=== PATIENT | female | born 1960 | race Caucasian/White ===

== ENCOUNTER 2017-08-06 07:04 | Day surgery (SDC) | payer MEDICARE ==
[~2017-08-06] VITALS: Ht 170.2 cm; Wt 168.0 kg
[~2017-08-06 07:04] MED LIST: ACYC800 PO; ALBIPROI INH; ALBU90OI INH; ALBU90OI6 INH; ALBU90OI61 INH; ALBUTEROL; ASPI81CH; ATOR10 PO; AZIT250 PO; AZIT500 PO; CALCA500CH PO; COMBIVENT; COMBIVENT RESPIM4 GM INH; CRUTCH3 USE; Cardizem PO; DILT120 PO; Diltiazem ER120 M2 PO; ENABLEX; EPIN.3I; ERGO400 PO; FLOVENT; FLUSAL2505; FLUSAL2505 IH; FLUSAL5005 INH; FLUT.05NI; FLUT1DIS8 INH; FLUT220OIA; HYDACE5 PO; HYDR1TAB94 PO; ISOMON20 PO; LOSA50 PO; METO50; MULTI-DAY PLUS1 EAC1 PO; NAPR550 PO; NITR.6SL SL; NORVASC PO; OXYACE5T PO; PRED10 PO; PRED20 PO; PROC1L PO; Percocet 5-3251 EACH PO; RXNAPNA550 PO; SINUS RINSE PR1 EACH; SPIRIVA; TIOT18; TOBR.3OPSO OP; TRAM50 PO; Vitamin B Comple1 EA PO; ZAFI20 PO; [UNRECOGNIZED DRUG - REMARK]
[2017-08-06] MEDS ORDERED: TRAM50 PO (15:59)
[2017-08-07 04:15] LABS: BASOPHILS ABSOLUTE AUTO 0.01 K/mm3 (0.00-0.23); BASOPHILS PERCENT AUTO 0 % (0-2); EOSINOPHILS ABSOLUTE AUTO 0.02 K/mm3 (0.00-0.68); EOSINOPHILS PERCENT AUTO 0 % (0-6); Hematocrit 38.9 % (33.0-51.0); IMMATURE GRAN ABSOLUTE AUTO 0.01 K/mm3 (0.00-0.10); IMMATURE GRAN PERCENT AUTO 0 % (0-1); LYMPHOCYTES ABSOLUTE AUTO 0.98 K/mm3 (0.84-5.20); LYMPHOCYTES PERCENT AUTO 13 % (21-46); MONOCYTES ABSOLUTE AUTO 0.48 K/mm3 (0.16-1.47); MONOCYTES PERCENT AUTO 6 % (4-13); Mean Corpuscular HGB 27.9 pg (26.0-34.0); Mean Corpuscular HGB Conc 30.8 g/dL (31.5-36.5); Mean Corpuscular Volume 91 fL (80-100); Mean Platelet Volume 9.8 fL (9.1-12.4); NEUTROPHILS ABSOLUTE AUTO 5.97 K/mm3 (1.96-9.15); NEUTROPHILS PERCENT AUTO 80 % (41-73); Platelet Count 277 K/mm3 (150-400); RDW Coefficient Variation 13.3 % (11.7-14.2); RDW Standard Deviation 44.1 fL (35.1-46.3); White Blood Cell Count 7.47 K/mm3 (4.00-11.30)
[2017-08-07 04:37] LABS: Anion Gap 7 mmol/L (6-16); Blood Urea Nitrogen 14 mg/dL (8-24); Bun/Creatinine Ratio 15.8 (12.0-20.0); CO2, Blood 28 mmol/L (21-32); Calcium, Blood 8.8 mg/dL (8.5-10.1); Chloride, Blood 107 mmol/L (98-108); Creatinine, Blood 0.89 mg/dL (0.40-1.00); Glomerular Filtration Rate >60 (60-); Glucose, Blood 135 mg/dL (70-99); Potassium, Blood 4.5 mmol/L (3.5-5.5); Sodium, Blood 142 mmol/L (136-145)
[2017-08-07] MEDS ORDERED: Percocet 7.5-31 EACH PO (08:54)
[2017-08-07] MEDS ORDERED: GAVILAX17 GM PO (08:55)
[2018-04-16] MEDS ORDERED: Vitamin B Comple1 EA (15:04)
[2018-04-16] MEDS ORDERED: ENOX40I SC (15:04)
[2018-04-22] MEDS ORDERED: DOCU100 PO (13:28)
[2018-04-22] MEDS ORDERED: ONDA4ODT MM (13:29)
[2018-04-22] MEDS ORDERED: HYDR1TAB94 PO (13:29)
[2018-04-22] MEDS ORDERED: ACET325 PO (13:29)
== END 2017-08-07 14:37 | disposition home or self-care (01) ==
LOC: ORSCMMR 07:04 → ORD 08:30 → SURS 12:47 → ORSCMMR 08-07 14:37
PROVIDERS: Hospitalist; Podiatrist Foot & Ankle Surgery
PROC: 3E0234Z Introduction of Serum, Toxoid and Vaccine into Muscle, Percutaneous Approach (ICD-10-PCS; 2017-08-06)
PROC: 0LQP0ZZ Repair Left Lower Leg Tendon, Open Approach (ICD-10-PCS; principal; 2017-08-06 08:30)
PROC: 0QBM0ZZ Excision of Left Tarsal, Open Approach (ICD-10-PCS; principal; 2017-08-06 08:30)
DX: M77.32 Calcaneal spur, left foot (principal); I10 Essential (primary) hypertension; E66.01 Morbid (severe) obesity due to excess calories; Z68.43 Body mass index [BMI] 50.0-59.9, adult; J45.909 Unspecified asthma, uncomplicated; Z79.899 Other long term (current) drug therapy; Z23 Encounter for immunization
CPT/HCPCS: 36415; 80048; 85025; 93005; 93010; 94640; 94760; 97116; 97161; 97530; C1713; G0008; G8978; G8979; G8980; J0690; J1100; J1885; J2250; J2405; J2550; J2710; J3010; J7120; Q2038

== ENCOUNTER 2018-02-11 09:46 | Day surgery (SDC) | payer MEDICARE ==
[~2018-02-11] VITALS: Ht 170.2 cm; Wt 134.9 kg
[~2018-02-11 09:46] MED LIST changes: +GAVILAX17 GM PO; +Percocet 7.5-31 EACH PO
== END 2018-02-11 11:40 | disposition home or self-care (01) ==
LOC: ORSCSDS 09:46
PROVIDERS: Internal Medicine Gastroenterology
PROC: 0DB68ZX Excision of Stomach, Via Natural or Artificial Opening Endoscopic, Diagnostic (ICD-10-PCS; principal; 2018-02-11 11:15)
DX: K31.7 Polyp of stomach and duodenum (principal); Z98.84 Bariatric surgery status; J45.909 Unspecified asthma, uncomplicated; I10 Essential (primary) hypertension; D64.9 Anemia, unspecified; E66.01 Morbid (severe) obesity due to excess calories; Z68.42 Body mass index [BMI] 45.0-49.9, adult; Z79.899 Other long term (current) drug therapy
CPT/HCPCS: J2250

== ENCOUNTER 2019-04-15 09:03 | Day surgery (SDC) | payer MEDICARE ==
[~2019-04-15] VITALS: Ht 170.2 cm; Wt 102.9 kg
[~2019-04-15 09:03] MED LIST changes: +ACET325 PO; +CALCIUM CIT 311 EACH PO; +DOCU100 PO; +ENOX40I SC; +ERGO50000 PO; +FERSU300 PO; +Hard Nails2500 MCG PO; +ONDA4ODT MM; +Vitamin B Comple1 EA
--- NOTE | 2019-04-15 10:17 | NUR ---
Ambulatory in Day Surgery Surgical site prepped with 2% Chlorhexidine cloth wipe. History, Chart, Medications and Allergies reviewed before start of procedure.Lungs clear T/O to Auscultation. Patient confirms NPO status and agrees with scheduled surgery. Patient reports completing Chlorhexadine shower X2 prior to admission to hospital.
--- NOTE | 2019-04-15 12:21 | NUR ---
04/15/19 1221 Valorie Vargas ALL COUNTS CORRECT.
--- NOTE | 2019-04-15 16:35 | NUR ---
THERAPY: PT IN ROOM TO WORK WITH PATIENT. MEDICATED FOR PAIN PRN.
--- NOTE | 2019-04-15 18:22 | NUR ---
PT HAS BEEN STABLE POST OP. PT SLEEPY BUT ROUSES EASILY. PT WAS ABLE TO WORK WITH THERAPY TO AMBULATE IN HALLWAYS AND SIT IN CHAIR. PT HAS NOT HAD A VOID YET POST OP. CONT IV FLUIDS ORDERED. PT TOLERATING WATER AND JELLO BUT HAS NOT HAD MUCH OF AN APPETITE. NO NAUSEA. AQUACEL CDI. HEMOVAC WITH MINOUTPUT VISIBLE IN DRAIN, NOT EMPTIED. PAS, TEDS AND POLAR PACK IN PLACE. PAIN MANAGED WITH SCHEDULED AND PRN MEDS. CALL LIGHT USED APPROPRIATELY.
[2019-04-16 04:11] LABS: BASOPHILS ABSOLUTE AUTO 0.01 K/mm3 (0.00-0.23); BASOPHILS PERCENT AUTO 0 % (0-2); EOSINOPHILS PERCENT AUTO 0 % (0-6); Hematocrit 31.1 % (33.0-51.0); Hemoglobin 9.9 g/dL (11.5-16.0); IMMATURE GRAN ABSOLUTE AUTO 0.03 K/mm3 (0.00-0.10); IMMATURE GRAN PERCENT AUTO 0 % (0-1); LYMPHOCYTES ABSOLUTE AUTO 0.83 K/mm3 (0.84-5.20); LYMPHOCYTES PERCENT AUTO 9 % (21-46); MONOCYTES ABSOLUTE AUTO 0.59 K/mm3 (0.16-1.47); MONOCYTES PERCENT AUTO 7 % (4-13); Mean Corpuscular HGB 29.3 pg (26.0-34.0); Mean Corpuscular HGB Conc 31.8 g/dL (31.5-36.5); Mean Corpuscular Volume 92 fL (80-100); Mean Platelet Volume 10.6 fL (9.1-12.4); NEUTROPHILS ABSOLUTE AUTO 7.64 K/mm3 (1.96-9.15); NEUTROPHILS PERCENT AUTO 84 % (41-73); Platelet Count 206 K/mm3 (150-400); RDW Coefficient Variation 13.2 % (11.7-14.2); RDW Standard Deviation 44.1 fL (35.1-46.3); Red Blood Cell Count 3.38 M/mm3 (3.80-5.20)
[2019-04-16 04:29] LABS: Anion Gap 6 mmol/L (6-16); Blood Urea Nitrogen 17 mg/dL (8-24); Bun/Creatinine Ratio 22.3 (12.0-20.0); CO2, Blood 28 mmol/L (21-32); Calcium, Blood 8.6 mg/dL (8.5-10.1); Chloride, Blood 108 mmol/L (98-108); Creatinine, Blood 0.76 mg/dL (0.40-1.00); Glomerular Filtration Rate >60 (60-); Glucose, Blood 145 mg/dL (70-99); Potassium, Blood 4.1 mmol/L (3.5-5.5); Sodium, Blood 142 mmol/L (136-145)
--- NOTE | 2019-04-16 05:04 | NUR ---
SHIFT SUMMARY LYING IN SEMI FOWLERS WITH EYES CLOSED. GOOD PAIN MANAGEMENT MAINTAINED. AMBULATED ALL AROUND UNIT, TOLERATED WELL. TOLERATED DIET WELL. DENIES FURTHER NEEDS AT THIS TIME. SAFETY MEASURES IN PLACE. WILL GIVE HAND OFF TO ONCOMING SHIFT USING SBAR.
--- NOTE | 2019-04-16 13:00 | NUR ---
PATIENT HAD 1 EMESIS. 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 IT WILL PASS.' IV INFILTRATED WHEN FLUSHED, DECLINES NEW START AT THIS TIME.
--- NOTE | 2019-04-16 17:08 | NUR ---
1700 assumed of patient patient sitting in chair at bedside and is crocheting. patient reports pain is 2/10. call light in reach patient has no needs at this time
--- NOTE | 2019-04-16 17:53 | NUR ---
SUMMARY PATIENT REPORTS GOOD PAIN CONTROL AND PLANNING FOR DISCHARGE IN THE MORNING AFTER DRAIN REMOVED. PATIENT STANDBY ASSIST TO AMBULATE IN HALLWAYS
--- NOTE | 2019-04-17 05:36 | NUR ---
SHIFT SUMMARY: PT POD#1 FOR RIGHT TOTAL KNEE. AQUACEL DRESSING CDI. POLAR PACK IN PLACE. TOTAL OF 80CC OF SS DRG FROM HEMOVAC. PT AMBULATING WITH MINIMAL 1 ASSIST TO BATHROOM. PAIN MANAGED WITH TYLENOL AND 10MG OXY. TRE REG DIET. DENIES N/V. VOIDING WELL.
--- NOTE | 2019-04-17 12:28 | NUR ---
DR Melton. BEEN TO SEE PT EARLIER TODAY. HEMOVAC WAS EMPTIED AT THAT TIME.
--- NOTE | 2019-04-17 13:38 | NUR ---
OTHER CHEMA Peters. BEEN GIVEN REPORT AND IS ASSUMING CARE OF PT AT THIS TIME.
--- NOTE | 2019-04-17 14:15 | NUR ---
ASSUMED CARE OF PATIENT AT THIS TIME. PT UP TO CHAIR. DOCOTR IN TO CHECK ON PT HEMOVAC DRAINAGE. 30CC SANGUINOUS DRAINAGE EMPTIED. DRAIN DC'D PER DOCTOR. PLAN TO DC HOME THIS AFTERNOON.
[2019-04-17] MEDS ORDERED: CELE100 PO (15:36)
[2019-04-17] MEDS ORDERED: Percocet 5-3251 EACH PO (15:37)
[2019-04-17] MEDS ORDERED: Aspir 8181 MG PO (15:37)
--- NOTE | 2019-04-17 16:00 | NUR ---
DISCHARGE: PT DC TO HOME AT THIS TIME WITH FAMILY. VERBALIZED UNDERSTANDING OF INSTRUCTIONS, FOLLOW UP, PROBLEMS TO REPORT AND MEDICATONS. SCRIPTS GIVEN. PT HAS NO IV. LEFT VIA WHEELCHAIR TO CAR WITH BELONGINGS. DRESSING SUPPLIES GIVEN.
== END 2019-04-17 16:01 | disposition home or self-care (01) ==
LOC: ORSCMMR 09:03 → ORD 09:45 → ORSCMMR 09:45 → SURS 14:13 → ORSCMMR 04-17 16:01
PROVIDERS: Orthopaedic Surgery
PROC: 0SRC0J9 Replacement of Right Knee Joint with Synthetic Substitute, Cemented, Open Approach (ICD-10-PCS; principal; 2019-04-15 10:30)
DX: M17.11 Unilateral primary osteoarthritis, right knee (principal); J45.909 Unspecified asthma, uncomplicated; I10 Essential (primary) hypertension; G47.33 Obstructive sleep apnea (adult) (pediatric); E66.9 Obesity, unspecified; Z68.35 Body mass index [BMI] 35.0-35.9, adult; Z23 Encounter for immunization; Z79.899 Other long term (current) drug therapy
CPT/HCPCS: 36415; 73560-RT; 80048; 85025; 88300; 88304; 90686; 94640; 94760; 97110; 97116; 97162; 97530; C1713; C1776; G0008; J0171; J0690; J0735; J1100; J1885; J2250; J2405; J2704; J2765; J2795; J3010; J7120

== ENCOUNTER 2019-07-13 05:58 | Day surgery (SDC) | payer OTHER ==
[~2019-07-13] VITALS: Ht 170.2 cm; Wt 99.5 kg
[~2019-07-13 05:58] MED LIST changes: +Aspir 8181 MG PO; +CELE100 PO; -Vitamin B Comple1 EA
--- NOTE | 2019-07-13 06:37 | NUR ---
INTO SDS VIA WHEELCHAIR. ABLE TO STAND FOR A WEIGHT AND AMBULATE TO THE BATHROOM. PT DENIES PAIN AT THIS TIME. History, Chart, Medications and Allergies reviewed before start of procedure.Lungs clear T/O to Auscultation. Patient confirms NPO status and agrees with scheduled surgery. Patient reports completing Chlorhexadine shower X2 prior to admission to hospital.Surgical site prepped with 2% Chlorhexidine cloth wipe.
--- NOTE | 2019-07-13 10:50 | NUR ---
PT TRANSFERRED TO ROOM VIA OWN BED, SLEEPY YET AROUSABLE TO VERBAL STIMULI, POST OP VS COMMENCED AND STABLE, PAS/CRYO/TEDS IN PLACE. FAMILY IN ROOM
--- NOTE | 2019-07-13 13:11 | NUR ---
07/13/19 1311 Arben Mena LATE ENTRY: INITIAL PROCEDURE WAS THE RIGHT KNEE LIPOMA EXCISION. 0831- SITE CHECK PREFORMED AND INCISION MADE FOR LEFT TKA.
--- NOTE | 2019-07-13 13:48 | NUR ---
physical therapy working with pt
[2019-07-14 04:50] LABS: BASOPHILS ABSOLUTE AUTO 0.01 K/mm3 (0.00-0.23); BASOPHILS PERCENT AUTO 0 % (0-2); EOSINOPHILS ABSOLUTE AUTO 0.02 K/mm3 (0.00-0.68); EOSINOPHILS PERCENT AUTO 0 % (0-6); Hematocrit 29.8 % (33.0-51.0); Hemoglobin 9.4 g/dL (11.5-16.0); IMMATURE GRAN ABSOLUTE AUTO 0.04 K/mm3 (0.00-0.10); IMMATURE GRAN PERCENT AUTO 0 % (0-1); LYMPHOCYTES ABSOLUTE AUTO 1.28 K/mm3 (0.84-5.20); LYMPHOCYTES PERCENT AUTO 14 % (21-46); MONOCYTES PERCENT AUTO 8 % (4-13); Mean Corpuscular HGB 28.3 pg (26.0-34.0); Mean Corpuscular HGB Conc 31.5 g/dL (31.5-36.5); Mean Corpuscular Volume 90 fL (80-100); Mean Platelet Volume 10.5 fL (9.1-12.4); NEUTROPHILS ABSOLUTE AUTO 7.14 K/mm3 (1.96-9.15); NEUTROPHILS PERCENT AUTO 78 % (41-73); Platelet Count 200 K/mm3 (150-400); RDW Coefficient Variation 12.8 % (11.7-14.2); RDW Standard Deviation 41.9 fL (35.1-46.3); Red Blood Cell Count 3.32 M/mm3 (3.80-5.20); White Blood Cell Count 9.19 K/mm3 (4.00-11.30)
--- NOTE | 2019-07-14 05:00 | NUR ---
SHIFT SUMMARY LYING IN SEMI FOWLERS WITH EYES OPEN. HAS BEEN OUT OF BED AMBULATING SEVERAL TIMES THIS SHIFT, HAS HAD PRN PAIN MED X1 THIS SHIFT, DENEIS FURTHER NEEDS OR WANTS AT THIS TIME. SAFETY MEASURES IN PLACE. WILL GIVE HAND OFF TO ONCOMING SHIFT USING SBAR.
[2019-07-14 05:09] LABS: Anion Gap 5 mmol/L (6-16); Blood Urea Nitrogen 22 mg/dL (8-24); Bun/Creatinine Ratio 29.4 (12.0-20.0); CO2, Blood 27 mmol/L (21-32); Calcium, Blood 8.4 mg/dL (8.5-10.1); Chloride, Blood 112 mmol/L (98-108); Creatinine, Blood 0.75 mg/dL (0.40-1.00); Glomerular Filtration Rate >60 (60-); Glucose, Blood 138 mg/dL (70-99); Sodium, Blood 144 mmol/L (136-145)
--- NOTE | 2019-07-14 18:20 | NUR ---
SUMMARY OOB TO CHAIR MUCH OF SHIFT, STANDBY ASSIST TO AMBULATE AND STEADY ON FEET. R LEG DRESSINGS X2 DRY AND INTACT. LEFT KNEE DRESSING DRY AND INTACT. HEMOVAC WITH BLOODY DRAINAGE. PT REPORTS GOOD PAIN CONTROL WITH PO MEDS
--- NOTE | 2019-07-15 05:20 | NUR ---
PT UP IN THE HALLWAYS WALKING TWICE TONIGHT, tHE LAST TIME SHE HAD INCREASED PAIN IN HER LT KNEE. MEDICATED PER EMAR. JACKELYN HOSE REMOVED AT THE BEGINNING OF THE SHIFT, THE TOP CUFF WAS VERY TIGHT, SCD'S REMOVED @ LAST ROUNDING PER PT REQUEST. HEMOVAC DRAINED OF 50CC OF RED FLUID. DRESSINGS ON RT AND LT KNEE ARE CLEAN AND DRY. NO OTHER ACUTE CHANGES.
[2019-07-15] MEDS ORDERED: ACET500 PO (08:27)
[2019-07-15] MEDS ORDERED: XARELTO20 MG PO (10:49)
[2019-07-15] MEDS ORDERED: Percocet 5-3251 EACH PO (10:50)
--- NOTE | 2019-07-15 12:30 | NUR ---
PATIENT D/C'D HOME AT THIS TIME. PATIENT HAD R KNEE DONE SOME MONTHS AGO; CONFIDENT IN UNDERSTANDING OF MEDS, ACTIVITY, WOUND CARE, OP PT, F/U APPT, ETC. PATIENT STATES PAIN CONTROLLED WITH PO PAIN MEDS. TOLERATING DIET. VOIDING. NO ACUTE CHANGES OR C/O. SCANT DRAINAGE NOTED FROM HEMOVAC SITE (D/C'D THIS AM BY ) DRESSINGS SENT WITH PATIENT.
== END 2019-07-15 12:30 | disposition home or self-care (01) ==
LOC: ORSCMMR 05:58 → ORD 07:30 → SURS 10:43 → ORSCMMR 07-15 12:30
PROVIDERS: Orthopaedic Surgery
PROC: 0SRD0J9 Replacement of Left Knee Joint with Synthetic Substitute, Cemented, Open Approach (ICD-10-PCS; principal; 2019-07-13 07:30)
DX: M17.12 Unilateral primary osteoarthritis, left knee (principal); Z01.818 Encounter for other preprocedural examination; I10 Essential (primary) hypertension; J45.909 Unspecified asthma, uncomplicated; K21.9 Gastro-esophageal reflux disease without esophagitis; Z79.899 Other long term (current) drug therapy; E66.9 Obesity, unspecified; Z68.34 Body mass index [BMI] 34.0-34.9, adult
CPT/HCPCS: 36415; 73560-LT; 80048; 85025; 86850; 86900; 86901; 88300; 88305; 94640; 94760; 97110; 97116; 97162; C1776; J0171; J0690; J0735; J1100; J1885; J2250; J2405; J2550; J2704; J2765; J2795; J3010; J7120

== ENCOUNTER 2020-07-28 08:21 | Day surgery (SDC) | payer OTHER ==
[~2020-07-28] VITALS: Ht 170.2 cm; Wt 114.1 kg
[~2020-07-28 08:21] MED LIST changes: +ACET500 PO; +FEROSUL325 M1; +FERROUS SULFAT325 M3 PO; +FLUT1DIS5 INH; +FLUT1DIS8; +MULTI-VITAMIN1 EAC2 PO; +MULTIPLE VITAM1 EACH PO; +Ventolin/Prove6.7 GM INH; +XARELTO20 MG PO
[2020-07-28] MEDS ORDERED: CALCIUM 600 +1 EA11 PO (09:13)
--- NOTE | 2020-07-28 10:09 | NUR ---
07/28/20 Ana Cheung 0.15ML OF EPI 1MG/ML ADDED TO 30ML OF BUPIVICAINE 0.5% TO FORM A MIXTURE OF BUPIVICAINE 0.5% WITH EPI 1:200,000. THIS MIXTURE WAS THEN MIXED 1:1 WITH LIDO 1% FOR INJECTION AT BEGINING OF CASE.
== END 2020-07-28 10:52 | disposition home or self-care (01) ==
LOC: ORSCSDS 08:21
PROVIDERS: Orthopaedic Surgery
PROC: 01N50ZZ Release Median Nerve, Open Approach (ICD-10-PCS; principal; 2020-07-28 09:45)
DX: G56.01 Carpal tunnel syndrome, right upper limb (principal); I10 Essential (primary) hypertension; I25.10 Atherosclerotic heart disease of native coronary artery without angina pectoris; J45.909 Unspecified asthma, uncomplicated; E78.5 Hyperlipidemia, unspecified; Z79.899 Other long term (current) drug therapy; G47.33 Obstructive sleep apnea (adult) (pediatric)
CPT/HCPCS: J0171; J0690; J2001; J2704; J7120

== ENCOUNTER 2020-09-15 08:52 | Day surgery (SDC) | payer OTHER ==
[~2020-09-15] VITALS: Ht 167.6 cm; Wt 113.1 kg
[~2020-09-15 08:52] MED LIST changes: +CALCIUM 600 +1 EA11 PO
--- NOTE | 2020-09-15 09:59 | NUR ---
09/15/20 0959 Yulissa Zacarias PT UPDATED ON DELAY OF START TIME OF HER CASE MD BARRON IS IN ANOTHER PROCEDURE AT THE HOSPITAL. PT UP TO [facility] WITH ASSISTANCE, BACK TO STRETCHER, BOTH RAILS UP, BED IN LOW, LOCKED POSITION AND CALL LIGHT IN REACH.
== END 2020-09-15 11:54 | disposition home or self-care (01) ==
LOC: ORSCSDS 08:52
PROVIDERS: Internal Medicine Gastroenterology
PROC: 0DBL8ZX Excision of Transverse Colon, Via Natural or Artificial Opening Endoscopic, Diagnostic (ICD-10-PCS; principal; 2020-09-15 10:15)
PROC: 0DBN8ZX Excision of Sigmoid Colon, Via Natural or Artificial Opening Endoscopic, Diagnostic (ICD-10-PCS; principal; 2020-09-15 10:15)
DX: Z12.11 Encounter for screening for malignant neoplasm of colon (principal); Z86.010 Personal history of colon polyps; D12.3 Benign neoplasm of transverse colon; D12.5 Benign neoplasm of sigmoid colon; K57.30 Diverticulosis of large intestine without perforation or abscess without bleeding; K64.8 Other hemorrhoids; I10 Essential (primary) hypertension; J45.909 Unspecified asthma, uncomplicated; Z79.899 Other long term (current) drug therapy
CPT/HCPCS: 88305; J2704; J7120